=== PATIENT | female | born 1980 | race Caucasian/White ===

== ENCOUNTER 2016-06-20 08:47 | Emergency (ER) | payer OTHER ==
[2016-06-20] MEDS ORDERED: KETOROLAC TROMETHAMINE 60 MG/2 ML VIAL IM ONE (09:34)
[2016-06-20 09:49] VITALS: BP 135/91
--- NOTE | 2016-06-20 10:23 | ED Physician Documentation ---
Upper Respiratory Symptoms - HISTORIAN Historian: patient - HPI Stated Complaint: sinus congestion, headache Chief Complaint: Upper Respiratory Symptoms Additional Information: 36 yo F here for sinus pain pressure, b/l ear pain x3 days, no w with significant BOONE with she believes to be a typical migraine. She has had low grade fever, no confusion, neck stiffness. She does have generalized body aches. No sick contacts. No medical problems. Does have sore throat, facial pressure. All other systems reviewed and negative except per HPI. - ROS CONST/EYES: other (none) CVS/RESP: none LYMPH: denies: swollen glands GI/: denies: abdominal pain, problems urinating, vomiting, nausea, diarrhea NEURO/PSYCH: denies: dizziness - PAST HX Lung Disease: none PE Risk Factors: none Surgeries/Procedures: none Allergies/Adverse Reactions: Allergies Allergy/AdvReac Type Severity Reaction Status Date / Time No Known Allergies Allergy Verified 06/20/16 09:35 Home Medications: Ambulatory Orders Medication Instructions Recorded Trazodone Hcl 100 mg PO DAILY u2 07/25/12 - SOCIAL HX Smoking History: non-smoker Alcohol Use: none Drug Use: none - FAMILY HX Family History: none - VITAL SIGNS Vital Signs: Vital Signs Temp Pulse Resp BP Pulse Ox 100.4 F H 76 21 135/91 97 06/20/16 08:55 06/20/16 08:55 06/20/16 08:55 06/20/16 08:55 06/20/16 08:55 - REVIEWED ASSESSMENTS Nursing Assessment Reviewed: Yes Vitals Reviewed: Yes ED Results Lab/Radiology - Orders Orders: ED Orders Category Date Time Status Ketorolac Tromethamine [Toradol] Med 06/20/16 09:34 Discontinued 60 mg IM NOW ONE Upper Respiratory Symptoms - EXAM General Appearance: mild distress (crying 2/2 pain in face, ears, head) EENT: eyes nml inspection, nml ENT inspection, lids & conjunct. nml, PERRL, pain over sinuses, frontal, maxillary, pharynx nml, other (TMs normal color but bulging b/l, serous effusions b/l.). No: tonsillar exudate Respiratory: no resp. distress, breath sounds nml Abdomen: non-tender, no organomegaly, nml bowel sounds CVS: reg rate & rhythm, heart sounds normal, no murmur Skin: color nml, no rash, warm,dry Neuro/Psych: oriented x3 Discharge Clincal Impression: Sinusitis Qualifiers: Sinusitis location: frontal Chronicity: acute Recurrence: non-recurrent Qualified Code(s): J01.10 - Acute frontal sinusitis, unspecified Referrals: Zohreh Harvey MD [Primary Care Provider] - 06/27/16 Home Medications: Ambulatory Orders Trazodone Hcl 100 mg PO DAILY u2 07/25/12 Comments: BOONE, ear pressure relieved with toradol. Abx as prescribed. Also rec sudafed q6h prn, flonase BID until symptoms resolve. Condition: Good Disposition: 01 HOME, SELF-CARE Decision to Admit: NO Decision Time: 10:22
== END 2016-06-20 10:30 | disposition home or self-care (01) ==
LOC: ED 08:47
DX: J01.10 Acute frontal sinusitis, unspecified (principal)
CPT/HCPCS: 87400; 96372; 99282; 99283; J1885

== ENCOUNTER 2016-08-09 17:31 | Outpatient (CLI) | payer OTHER ==
[2016-08-09 18:14] LABS: BASOPHILS % 0.6 (0.0-1.5); EOSINOPHILS % 3.2 % (0.0-6.8); MEAN CORPUSCULAR HEMOGLOBIN 25.4 pg (28.0-34.0); MEAN CORPUSCULAR VOLUME 81.4 fl (80.0-100.0); MONOCYTES % 3.9 % (0.0-11.0); NEUTROPHILS # 3.2 # k/uL (1.4-7.7)
--- NOTE | 2016-08-09 19:25 | Diagnostic Imaging Report ---
Report Submission Date: Aug 09, 2016 6:27:51 PM CDT Patient Study Name: JOSE FRANCISCO CHAN Date: Aug 09, 2016 5:42:59 PM CDT Modality Type: CR Gender: F Description: CHEST : 84 Institution: [facility] Physician: ANIKA SORIANO 2 views the chest Clinical history: Short of air Findings: The heart size is normal. No pleural effusion or pneumothorax. There is mild patchy infiltrate in the right upper lobe. Impression: Mild right upper lobe infiltrate. Electronically signed on Aug 09, 2016 6:27:51 PM CDT by: Herson TOSCANO
== END 2016-08-09 17:32 ==
LOC: LAB 17:31
PROVIDERS: ATTEND Physician Assistant
DX: R06.02 Shortness of breath (principal)
CPT/HCPCS: 36415; 71020; 83880; 85025

== ENCOUNTER 2017-08-07 14:30 | Outpatient (CLI) | payer OTHER | END 2017-08-07 14:32 | LOC: LAB 14:30 | PROVIDERS: ATTEND Family Medicine | DX: E03.9 Hypothyroidism, unspecified (principal) | CPT/HCPCS: 36415; 84443 ==

== ENCOUNTER 2018-05-29 13:12 | Outpatient (CLI) | payer OTHER | END 2018-05-29 13:30 | LOC: LABRHC 13:12 | PROVIDERS: ATTEND Podiatrist Foot & Ankle Surgery | DX: Z53.8 Procedure and treatment not carried out for other reasons (principal) ==